=== PATIENT | male | born 1985 | race Caucasian/White ===

== ENCOUNTER → 2016-09-24 | Emergency (ER) | payer BC, OTHER ==
[~2016-09-24] VITALS: Ht 185.4 cm; Wt 96.7 kg
[~2016-09-24] MED LIST: CPR500T PO; CYCL10TA45 PO; FLX20C PO; KETOROLAC 60 MG/2 ML (TORADOL) VIAL IM ONE; LORA10CA PO; NF-TORA10 PO; OMEP20TA PO; OXYC-109 PO; RANI150T15 PO; TRM50T PO; oxycODONE/ACETAMINOPHEN 10MG-325 MG (PERCOCET-10) TABLET PO ONE
--- NOTE | 2016-09-24 08:13 | Diagnostic Imaging Report ---
INDICATION: Right-sided chest pain. PA and lateral chest obtained at 7:36 a.m. and compared with 07/15/06. FINDINGS: Heart and mediastinal silhouette are normal in appearance. There is very poor inspiration with resultant basilar atelectatic change versus infiltrate. There is no pneumothorax or pleural fluid collection. IMPRESSION: Poor inspiration with bibasilar atelectasis versus infiltrate. No pneumothorax or pleural fluid. Dictated by: Dictated on workstation # [id number]
[2016-09-24 08:19] VITALS: BP 138/77
== END | disposition home or self-care (01) ==
LOC: ED 06:59
DX: R07.89 Other chest pain (principal)
CPT/HCPCS: 71020; 93005; 96372; 99282; J1885; 93010; 99284

== ENCOUNTER → 2017-02-18 | Outpatient (CLI) | payer BC ==
[~2017-02-18] MED LIST changes: -KETOROLAC 60 MG/2 ML (TORADOL) VIAL IM ONE; -oxycODONE/ACETAMINOPHEN 10MG-325 MG (PERCOCET-10) TABLET PO ONE
--- NOTE | 2017-02-18 11:10 | Diagnostic Imaging Report ---
INDICATION: Trauma with bruising and swelling to third digit. History of previous surgery. FINDINGS: There is arthrodesis with fusion of the PIP joint of the second toe. Pin is present in good position. Bone screw noted in the head of the first and second metatarsal. The third digit shows a fracture along the base of the distal phalanx which does extend into the articulating surface. There is associated soft tissue swelling. 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 PIP joint appears intact. MP joint appears normal. IMPRESSION: 1. Nondisplaced fracture along the anterior plantar aspect of the base of the distal phalanx involving the articulating surface. There is associated advanced degenerative disease present as well. Dictated by: Dictated on workstation # [id number]
== END ==
LOC: RAD 10:15
PROVIDERS: ATTEND Nurse Practitioner Family
DX: M79.674 Pain in right toe(s) (principal); S92.534A Nondisplaced fracture of distal phalanx of right lesser toe(s), initial encounter for closed fracture; X58.XXXA Exposure to other specified factors, initial encounter